=== PATIENT | female | born 1970 | race Caucasian/White ===

== ENCOUNTER 2019-06-10 23:21 | Emergency (ER) | payer OTHER, SELFPAY ==
--- OUTSIDE RECORDS SUMMARY | 2019-06-10 23:23 | XMS REPORT ---
:1970 Author Organization eClinicalWorks Care Team Providers Name Role Phone Artem Sixto Provider Role Unavailable Allergies No Known Allergies Problems Problem Type Condition Code Onset Dates Condition Status Assessment Mixed hyperlipidemia E78.2 Active Problem Circulation problem I99.9 Active Assessment Prediabetes R73.03 Active Problem Body mass index (BMI) of 34.0-34.9 Z68.34 Active in adult Problem Adult BMI 35.0-35.9 kg/sq m Z68.35 Active Problem Other obesity due to excess E66.09 Active calories Problem Mixed hyperlipidemia E78.2 Active Problem Tobacco use disorder F17.200 Active Problem HTN (hypertension), benign I10 Active Problem PAD (peripheral artery disease) I73.9 Active Medications No Known Medications Results No Known Results Summary Purpose eClinicalWorks Submission
--- OUTSIDE RECORDS SUMMARY | 2019-06-10 23:23 | XMS REPORT ---
:1970 Author Organization eClinicalWorks Care Team Providers Name Role Phone Artem Sixto Provider Role Unavailable Allergies, Adverse Reactions, Alerts Substance Reaction Event Type Ramipril rash Drug Allergy Problems Problem Type Condition Code Onset Dates Condition Status Assessment PAD (peripheral artery disease) I73.9 Active Problem Circulation problem I99.9 Active Problem Body mass index (BMI) of 34.0-34.9 Z68.34 Active in adult Problem Adult BMI 35.0-35.9 kg/sq m Z68.35 Active Problem Other obesity due to excess E66.09 Active calories Problem Mixed hyperlipidemia E78.2 Active Problem Tobacco use disorder F17.200 Active Problem HTN (hypertension), benign I10 Active Problem PAD (peripheral artery disease) I73.9 Active Assessment Prediabetes R73.03 Active Assessment HTN (hypertension), benign I10 Active Assessment Body mass index (BMI) of 34.0-34.9 Z68.34 Active in adult Assessment Mixed hyperlipidemia E78.2 Active Assessment Other obesity due to excess E66.09 Active calories Assessment Tobacco use disorder F17.200 Active Medications Medication Code Code Instructions Start End Status Dosage System Date Date Simvastatin ND 01573144052 40 MG Orally Active 1 tablet Once a day Cilostazol ND 55754914629 100 MG Orally Active 1 tablet Twice a day 30 minutes before or 2 hours after breakfast and dinner Aspirin Adult Low ND 31426537073 81 MG Orally Active 1 tablet Dose Once a day Hydrochlorothiazide ND 14947353933 12.5 MG Orally Active 1 tablet Once a day in the morning Results No Known Results Summary Purpose eClinicalWorks Submission
--- OUTSIDE RECORDS SUMMARY | 2019-06-10 23:23 | XMS REPORT ---
:1970 [facility] [address] [place] [address] Care Team Providers Name Role Phone Unavailable Unavailable Unavailable Problems This patient has no known problems. Allergies, Adverse Reactions, Alerts This patient has no known allergies or adverse reactions. Medications This patient has no known medications. Results Test Description Test Time Test Comments Text Results Atomic Results Result Comments SCR MAMM BILATERAL ALVARO 2019-01-04 16:22:07 - SCR MAMM BILATERAL ALVARO CAD CAD DIGITAL DIGITALBILATERAL DIGITAL SCREENING MAMMOGRAM 3D/2D WITH CAD: 01/02/2019CLINICAL: Asymptomatic. Digital breast tomosynthesis was performed in addition to routine CC and MLO views. Current mammographic images were evaluated by either a [employer] M-Vu or a [employer] ImageChecker CAD (computer aided detection system). Comparison is made to exams dated 03/15/2017 mammogram, 03/12/2016 mammogram, and 12/20/2014 mammogram - [facility]. There are scattered fibroglandular tissues in both breasts. No suspicious mass, architectural distortion, malignant type calcification, or lymph node abnormality detected. Breast architecture is stable compared to prior exams.IMPRESSION: NEGATIVEThere is no mammographic evidence of malignancy. Resume annual screening mammography in one year. Maday Doe M.D. cc/penrad:01/04/2019 16:22:07 Entry: cc - 01/06/2019 09:29:34Imaging Technologist: Tika Major MM, [facility] sent: BIRADS 1-2 Normal Mammogram BI-RADS: 1 Negative SCR MAMM BILATERAL ALVARO 2019-01-04 16:22:07 - SCR MAMM BILATERAL ALVARO CAD CAD DIGITAL DIGITALBILATERAL DIGITAL SCREENING MAMMOGRAM 3D/2D WITH CAD: 01/02/2019CLINICAL: Asymptomatic. Digital breast tomosynthesis was performed in addition to routine CC and MLO views. Current mammographic images were evaluated by either a [employer] M-Vu or a [employer] ImageChecker CAD (computer aided detection system). Comparison is made to exams dated 03/15/2017 mammogram, 03/12/2016 mammogram, and 12/20/2014 mammogram - [facility]. There are scattered fibroglandular tissues in both breasts. No suspicious mass, architectural distortion, malignant type calcification, or lymph node abnormality detected. Breast architecture is stable compared to prior exams.IMPRESSION: NEGATIVEThere is no mammographic evidence of malignancy. Resume annual screening mammography in one year. Maday danielson/penrad:01/04/2019 16:22:07 Entry: cc - 01/06/2019 09:29:34Imaging Technologist: Tika Major MM, [facility] sent: BIRADS 1-2 Normal Mammogram BI-RADS: 1 Negative
--- OUTSIDE RECORDS SUMMARY | 2019-06-10 23:24 | XMS REPORT ---
:1970 Author Organization eClinicalWorks Care Team Providers Name Role Phone Isai Mcgillh Provider Role Unavailable Allergies, Adverse Reactions, Alerts Substance Reaction Event Type Ramipril rash Drug Allergy Problems Problem Type Condition Code Onset Dates Condition Status Assessment Well adult on routine health check Z00.00 Active Problem Circulation problem I99.9 Active Problem Body mass index (BMI) of 34.0-34.9 Z68.34 Active in adult Problem Adult BMI 35.0-35.9 kg/sq m Z68.35 Active Problem Other obesity due to excess E66.09 Active calories Problem Mixed hyperlipidemia E78.2 Active Problem Tobacco use disorder F17.200 Active Problem HTN (hypertension), benign I10 Active Problem PAD (peripheral artery disease) I73.9 Active Assessment Noncompliance w/medication Z91.14 Active treatment due to intermit use of medication Assessment Body mass index (BMI) of 34.0-34.9 Z68.34 Active in adult Assessment Statin intolerance Z78.9 Active Assessment HTN (hypertension), benign I10 Active Assessment Mixed hyperlipidemia E78.2 Active Assessment Other obesity due to excess E66.09 Active calories Assessment Tobacco use disorder F17.200 Active Assessment Prediabetes R73.03 Active Assessment PAD (peripheral artery disease) I73.9 Active Medications Medication Code Code Instructions Start End Status Dosage System Date Date Repatha SureClick [facility] 18048340603 140 MG/ML Dec Active 1 ml Subcutaneous 20, every 2 weeks 2018 Aspirin Adult Low [facility] 09183570760 81 MG Orally Active 1 tablet Dose Once a day Cilostazol ND 50566804310 100 MG Orally Active 1 tablet Twice a day 30 minutes before or 2 hours after breakfast and dinner Simvastatin ND 64349333825 40 MG Orally Inactive 1 tablet Once a day Hydrochlorothiazide ND 76012119180 12.5 MG Orally Active 1 tablet Once a day in the morning Hydrochlorothiazide ND 11933292711 12.5 MG Orally Active 1 tablet Once a day in the morning Results No Known Results Summary Purpose eClinicalWorks Submission
--- OUTSIDE RECORDS SUMMARY | 2019-06-10 23:24 | XMS REPORT ---
:1970 Author Organization eClinicalWorks Care Team Providers Name Role Phone Artem Sixto Provider Role Unavailable Allergies No Known Allergies Problems Problem Type Condition Code Onset Dates Condition Status Problem Circulation problem I99.9 Active Problem Body [...]
--- OUTSIDE RECORDS SUMMARY | 2019-06-10 23:24 | XMS REPORT ---
[...] artery disease) I73.9 Active Medications Medication Code System Code Instructions Start End Date Status Dosage Date [facility] 42030326721 140 MG/ML Feb 24, Active 1 ml SureClick Subcutaneous 2018 every 2 weeks Results No Known Results Summary Purpose eClinicalWorks Submission
--- OUTSIDE RECORDS SUMMARY | 2019-06-10 23:24 | XMS REPORT ---
[...] Instructions Start End Date Status Dosage Date [facility] 42403957837 140 MG/ML Feb 24, Active 1 ml SureClick Subcutaneous 2018 every 2 weeks Results No Known Results Summary Purpose eClinicalWorks Submission
--- OUTSIDE RECORDS SUMMARY | 2019-06-10 23:24 | XMS REPORT ---
[...] PAD (peripheral artery disease) I73.9 Active Assessment Statin intolerance Z78.9 Active Assessment Noncompliance w/medication Z91.14 Active treatment due to intermit use of medication Assessment Prediabetes R73.03 Active Assessment HTN (hypertension), benign I10 Active Assessment Body mass index (BMI) of 34.0-34.9 Z68.34 Active in adult Assessment Mixed hyperlipidemia E78.2 Active Assessment Other obesity due to excess E66.09 Active calories Assessment Tobacco use disorder F17.200 Active Medications Medication Code Code Instructions Start End Status Dosage System Date Date Cilostazol [facility] 39980839872 100 MG Orally Active 1 tablet Twice a day 30 minutes before or 2 hours after breakfast and dinner Aspirin Adult Low [facility] 62591349344 81 MG Orally Active 1 tablet Dose Once a day Hydrochlorothiazide ND 84825673251 12.5 MG Orally Active 1 tablet Once a day in the morning Simvastatin ND 83691819596 40 MG Orally Inactive 1 tablet Once a day Results No Known Results Summary Purpose eClinicalWorks Submission
--- OUTSIDE RECORDS SUMMARY | 2019-06-10 23:24 | XMS REPORT ---
[...] Instructions Start End Date Status Dosage Date [facility] 01666381360 140 MG/ML Feb 24, Active 1 ml SureClick Subcutaneous 2018 every 2 weeks Results No Known Results Summary Purpose eClinicalWorks Submission
[2019-06-11 00:16] LABS: Urine Blood NEGATIVE (NEG); Urine Glucose NEGATIVE (NEG); Urine Protein NEGATIVE (NEG); Urine Specific Gravity 1.025 (1.005-1.030); Urine pH 5.5 (5.0-7.0)
[2019-06-11] MEDS ORDERED: CYCLOBENZAPRINE 10 MG TAB ONE (00:39)
[2019-06-11] MEDS ORDERED: KETOROLAC 30 MG/ML INJ ONE (00:39)
[2019-06-11 00:40] LABS: Urine Bacteria >50 /HPF (<20); Urine RBC <5 /HPF (NONE SEEN)
[2019-06-11 00:41] LABS: Urine Culture Reflex Order NOT NEEDED; Urine Mucus 1+ /HPF (NONE SEEN)
--- NOTE | 2019-06-11 00:48 | ER ---
Nurse's Notes [facility] Name: Vi Chinchilla Age: 48 yrs Sex: Female : 1970 Arrival Date: 06/10/2019 Time: 23:25 Bed 7 Private MD: Sixto Mcgill Diagnosis: Low back pain;Urinary tract infection, site not specified Presentation: 06/09 23:29 Chief complaint: Patient states: she has right sided back pain radiating to her abdomen bb x 3 days pain is 10/10 and it feels numb. Coronavirus screen: Proceed with normal triage. Ebola Screen: No symptoms or risks identified at this time. Initial Sepsis Screen: Does the patient meet any 2 criteria? No. Patient's initial sepsis screen is negative. Does the patient have a suspected source of infection? No. Patient's initial sepsis screen is negative. Risk Assessment: Do you want to hurt yourself or someone else? Patient reports no desire to harm self or others. Onset of symptoms was June 07, 2019. 23:29 Method Of Arrival: Ambulatory bb 23:29 Acuity: CATHY 3 bb ORAL HEALTH THERAPIST: 23:32 LMP 05/22/2019 bb Historical: - Allergies: 23:32 No Known Allergies; bb - Home Meds: 23:32 cilostazol 100 mg Oral tab 1 tab 2 times per day [Active]; aspirin 81 mg Oral chew 1 bb tab once daily [Active]; Hydrochlorothiazide Oral [Active]; Repatha Syringe subcutaneous subcutaneous [Active]; - PMHx: 23:32 blood clot in pelvis area; bb - PSHx: 23:32 Tubal ligation; bb - Immunization history:: Adult Immunizations up to date. - Social history:: Smoking status: Patient reports the use of cigarette tobacco products, smokes one-half pack cigarettes per day, Patient uses alcohol, but reports only rare drinking. Patient/guardian denies using street drugs. Screenin:53 Abuse screen: Denies threats or abuse. Denies injuries from another. Nutritional lp1 screening: No deficits noted. Tuberculosis screening: No symptoms or risk factors identified. Fall Risk None identified. Assessment: 23:51 General: Appears in no apparent distress. Behavior is calm, cooperative, appropriate lp1 for age. Pain: Complains of pain in right low back Pain radiates to right lower quadrant Pain currently is 7 out of 10 on a pain scale. Quality of pain is described as. Neuro: Level of Consciousness is awake, alert, obeys commands, Oriented to person, place, time, situation, Moves all extremities. Full function Gait is steady, Reports paresthesias in right low back. Cardiovascular: Patient's skin is warm and dry. Respiratory: Respiratory effort is even, unlabored. GI: No signs and/or symptoms were reported involving the gastrointestinal system. : Denies pain with urination. EENT: No signs and/or symptoms were reported regarding the EENT system. Derm: Skin is pink, warm \T\ dry. Musculoskeletal: No deficits noted. Vital Signs: 23:29 BP 178 / 97; Pulse 68; Resp 16 S; Temp 97.9(O); Pulse Ox 99% on R/A; Weight 86.64 kg bb (R); Height 5 ft. 0 in. (152.40 cm) (R); Pain 10/10; 23:29 Body Mass Index 37.30 (86.64 kg, 152.40 cm) bb ED Course: 23:25 Patient arrived in ED. mr 23:25 Sixto Mcgill DO is Private Physician. mr 23:30 Triage completed. bb 23:32 Arm band placed on Patient placed in an exam room, on a stretcher, on pulse oximetry. bb 23:40 Cassi Olmedo, LOBITO is Primary Nurse. lp1 23:54 Iona Simmons FNP-C is PHCP. snw 23:54 Adolph Zepeda MD is Attending Physician. snw 04/05 00:00 Urine Microscopic Only Sent. ds4 00:00 Urine Culture Sent. ds4 00:48 Sixto Mcgill DO is Referral Physician. snw 00:58 No provider procedures requiring assistance completed. Patient did not have IV access lp1 during this emergency room visit. 00:59 Patient has correct armband on for positive identification. lp1 Administered Medications: 00:38 Drug: TORadol 30 mg Route: IM; Site: left gluteus; fc 00:58 Follow up: Response: No adverse reaction lp1 00:38 Drug: Flexeril 10 mg Route: PO; fc 00:58 Follow up: Response: No adverse reaction lp1 00:58 Drug: Doxycycline 100 mg Route: PO; lp1 00:58 Follow up: Response: Medication administered at discharge. lp1 Outcome: 00:48 Discharge ordered by . snw 00:59 Discharged to home ambulatory, with friend. lp1 00:59 Condition: good 00:59 Discharge instructions given to patient, Instructed on discharge instructions, follow up and referral plans. medication usage, Demonstrated understanding of instructions, follow-up care, medications, Prescriptions given X 3. 00:59 Patient left the ED. lp1 Signatures: Iona Simmons, COMBINATION OPERATOR-C COMBINATION OPERATOR-Csnw Mary Klineindigovadim, Vidya, RN RN fc Leticia Villatoro, RN RN bb Cassi Olmedo RN RN lp1 Pedro Luis Aguayo4
--- NOTE | 2019-06-11 00:49 | EDPHYS ---
Physician Documentation [facility] Name: Vi Chinchilla Age: 48 yrs Sex: Female : 1970 Arrival Date: 06/10/2019 Time: 23:25 Bed 7 Private MD: Artem [facility] ED Physician Adolph Zepeda HPI: 06/10 00:51 This 48 yrs old Female presents to ER via Ambulatory with complaints of Back snw Pain. 00:51 The patient presents with pain that is acute, with no known mechanism of injury. The snw symptoms are located in the low back. Onset: The symptoms/episode began/occurred gradually, 3 day(s) ago. The pain does not radiate. Associated signs and symptoms: The patient has no apparent associated signs or symptoms. The problem was sustained from unknown cause. Severity of symptoms: At their worst the symptoms were moderate. It is unknown whether or not the patient has had similar symptoms in the past. The patient has not recently seen a physician. SOCIAL MEDIA MARKETING MANAGER: 06/09 23:32 LMP 05/22/2019 bb Historical: - Allergies: 23:32 No Known Allergies; bb - Home Meds: 23:32 cilostazol 100 mg Oral tab 1 tab 2 times per day [Active]; aspirin 81 mg Oral chew 1 bb tab once daily [Active]; Hydrochlorothiazide Oral [Active]; Repatha Syringe subcutaneous subcutaneous [Active]; - PMHx: 23:32 blood clot in pelvis area; bb - PSHx: 23:32 Tubal ligation; bb - Immunization history:: Adult Immunizations up to date. - Social history:: Smoking status: Patient reports the use of cigarette tobacco products, smokes one-half pack cigarettes per day, Patient uses alcohol, but reports only rare drinking. Patient/guardian denies using street drugs. ROS: 06/10 00:51 Constitutional: Negative for fever, chills, and weight loss, Eyes: Negative for injury, snw pain, redness, and discharge, ENT: Negative for injury, pain, and discharge, Neck: Negative for injury, pain, and swelling, Cardiovascular: Negative for chest pain, palpitations, and edema, Respiratory: Negative for shortness of breath, cough, wheezing, and pleuritic chest pain, Abdomen/GI: Negative for abdominal pain, nausea, vomiting, diarrhea, and constipation, : Negative for injury, bleeding, discharge, and swelling, MS/Extremity: Negative for injury and deformity, Skin: Negative for injury, rash, and discoloration, Neuro: Negative for headache, weakness, numbness, tingling, and seizure. Back: Positive for pain at rest, pain with movement, of the right low back. Exam: 00:50 Constitutional: This is a well developed, well nourished patient who is awake, alert, snw and in no acute distress. Head/Face: Normocephalic, atraumatic. Eyes: Pupils equal round and reactive to light, extra-ocular motions intact. Lids and lashes normal. Conjunctiva and sclera are non-icteric and not injected. Cornea within normal limits. Periorbital areas with no swelling, redness, or edema. ENT: Nares patent. No nasal discharge, no septal abnormalities noted. Tympanic membranes are normal and external auditory canals are clear. Oropharynx with no redness, swelling, or masses, exudates, or evidence of obstruction, uvula midline. Mucous membranes moist. Neck: Trachea midline, no thyromegaly or masses palpated, and no cervical lymphadenopathy. Supple, full range of motion without nuchal rigidity, or vertebral point tenderness. No Meningismus. Chest/axilla: Normal chest wall appearance and motion. Nontender with no deformity. No lesions are appreciated. Cardiovascular: Regular rate and rhythm with a normal S1 and S2. No gallops, murmurs, or rubs. Normal PMI, no JVD. No pulse deficits. Respiratory: Lungs have equal breath sounds bilaterally, clear to auscultation and percussion. No rales, rhonchi or wheezes noted. No increased work of breathing, no retractions or nasal flaring. Abdomen/GI: Soft, non-tender, with normal bowel sounds. No distension or tympany. No guarding or rebound. No evidence of tenderness throughout. Skin: Warm, dry with normal turgor. Normal color with no rashes, no lesions, and no evidence of cellulitis. MS/ Extremity: Pulses equal, no cyanosis. Neurovascular intact. Full, normal range of motion. Neuro: Awake and alert, GCS 15, oriented to person, place, time, and situation. Cranial nerves II-XII grossly intact. Motor strength 5/5 in all extremities. Sensory grossly intact. Cerebellar exam normal. Normal gait. Psych: Awake, alert, with orientation to person, place and time. Behavior, mood, and affect are within normal limits. 00:50 Back: pain, that is mild, that is moderate, ROM is normal, CVA tenderness, is absent, muscle spasm, is appreciated in the low back area. Vital Signs: 06/09 23:29 BP 178 / 97; Pulse 68; Resp 16 S; Temp 97.9(O); Pulse Ox 99% on R/A; Weight 86.64 kg bb (R); Height 5 ft. 0 in. (152.40 cm) (R); Pain 10/10; 23:29 Body Mass Index 37.30 (86.64 kg, 152.40 cm) bb MDM: 06/10 00:02 Patient medically screened. snw 00:49 Data reviewed: vital signs, nurses notes. Counseling: I had a detailed discussion with snw the patient and/or guardian regarding: the historical points, exam findings, and any diagnostic results supporting the discharge/admit diagnosis, the presence of at least one elevated blood pressure reading (>120/80) during this emergency department visit, lab results, the need for outpatient follow up, to return to the emergency department if symptoms worsen or persist or if there are any questions or concerns that arise at home. Special discussion: I have referred the patient to see his PCP for further evaluation of high blood pressure. Based on the history and exam findings, there is no indication for further emergent testing or inpatient evaluation. I discussed with the patient/guardian the need to see the primary care provider for further evaluation of the symptoms. 06/09 23:56 Order name: Urine Microscopic Only; Complete Time: 00:48 snw 06/09 23:59 Order name: Urine Dipstick--Ancillary (enter results); Complete Time: 00:21 ds4 06/09 23:56 Order name: Urine Dipstick-Ancillary (obtain specimen); Complete Time: 23:58 snw Administered Medications: 00:38 Drug: TORadol 30 mg Route: IM; Site: left gluteus; 00:58 Follow up: Response: No adverse reaction lp1 00:38 Drug: Flexeril 10 mg Route: PO; fc 00:58 Follow up: Response: No adverse reaction lp1 00:58 Drug: Doxycycline 100 mg Route: PO; lp1 00:58 Follow up: Response: Medication administered at discharge. lp1 Disposition: 06:59 Co-signature as Attending Physician, Adolph Zepeda MD I agree with the assessment and tw4 plan of care. Disposition: 06/11/19 00:48 Discharged to Home. Impression: Low back pain, Urinary tract infection, site not specified. - Condition is Stable. - Discharge Instructions: Back Pain, Adult, Urinary Tract Infection, Adult, Cryotherapy, Rehydration, Adult, Heat Therapy. - Prescriptions for Doxycycline Hyclate 100 mg Oral Tablet - take 1 tablet by ORAL route every 12 hours; 20 tablet. orphenadrine citrate 100 mg Oral Tablet Sustained Release - take 1 tablet by ORAL route 2 times per day As needed; 20 tablet. promethazine 25 mg Oral Tablet - take 1 tablet by ORAL route every 6 hours As needed; 20 tablet. - Work release form, Medication Reconciliation Form, Thank You Letter, Antibiotic Education, Prescription Opioid Use form. - Follow up: Emergency Department; When: As needed; Reason: Worsening of condition. Follow up: Sixto Mcgill DO; When: 2 - 3 days; Reason: Recheck today's complaints, Continuance of care, Re-evaluation by your physician. Signatures: Dispatcher [employer] EDMS Iona Simmons, GARRETT ERP CONSULTANT-CsnVidya Evans, RN RN Leticia Villatoro RN RN Cassi Marvin, RN RN lp1 Adolph Zepeda MD MD tw4 Corrections: (The following items were deleted from the chart) 00:59 00:48 06/11/2019 00:48 Discharged to Home. Impression: Low back pain; Urinary tract lp1 infection, site not specified. Condition is Stable. Forms are Medication Reconciliation Form, Thank You Letter, Antibiotic Education, Prescription Opioid Use. Follow up: Emergency Department; When: As needed; Reason: Worsening of condition. Follow up: Sixto Mcgill; When: 2 - 3 days; Reason: Recheck today's complaints, Continuance of care, Re-evaluation by your physician. snw
[2019-06-11] MEDS ORDERED: DOXYCYCLINE 100 MG CAP PO ONE (00:57)
== END 2019-06-11 00:59 | disposition home or self-care (01) ==
LOC: ER 23:21
DX: N39.0 Urinary tract infection, site not specified (principal); M54.5 Low back pain; F17.210 Nicotine dependence, cigarettes, uncomplicated
CPT/HCPCS: 81003; 81015; 96372; 99284

== ENCOUNTER 2019-06-12 19:40 | Emergency (ER) | payer OTHER ==
--- OUTSIDE RECORDS SUMMARY | 2019-06-12 19:42 | XMS REPORT ---
:1970 Author Organization [facility] Address [address] [place] [address] Care Team Providers Name Role Phone Unavailable [...] mammographic images were evaluated by either a [employer] 2000 M-Vu or a [employer] ImageChecker CAD (computer aided detection system). Comparison is made to exams dated 03/15/2017 mammogram, 03/12/2016 mammogram, and 12/20/2014 mammogram - [facility]. There are scattered fibroglandular tissues in both breasts. No suspicious mass, architectural distortion, malignant type calcification, or lymph node abnormality detected. Breast architecture is stable compared to prior exams.IMPRESSION: NEGATIVEThere is no mammographic evidence of malignancy. Resume annual screening mammography in one year. Maday Doe M.D. cc/penrad:01/04/2019 16:22:07 Entry: cc - 01/06/2019 09:29:34Imaging Technologist: Tika Major MM, [facility] sent: BIRADS 1-2 Normal Mammogram BI-RADS: 1 Negative SCR MAMM BILATERAL ALVARO 2019-01-04 16:22:07 - SCR MAMM BILATERAL ALVARO CAD CAD DIGITAL DIGITALBILATERAL DIGITAL SCREENING MAMMOGRAM 3D/2D WITH CAD: 01/02/2019CLINICAL: Asymptomatic. Digital breast tomosynthesis was performed in addition to routine CC and MLO views. Current mammographic images were evaluated by either a [employer] 2000 M-Vu or a [employer] ImageChecker CAD (computer aided detection system). Comparison is made to exams dated 03/15/2017 mammogram, 03/12/2016 mammogram, and 12/20/2014 mammogram - [facility]. There are scattered fibroglandular tissues in both breasts. No suspicious mass, architectural distortion, malignant type calcification, or lymph node abnormality detected. Breast architecture is stable compared to prior exams.IMPRESSION: NEGATIVEThere is no mammographic evidence of malignancy. Resume annual screening mammography in one year. Maday danielson/penrad:01/04/2019 16:22:07 Entry: cc - 01/06/2019 09:29:34Imaging Technologist: Tika Major MM, [facility] sent: BIRADS 1-2 Normal Mammogram BI-RADS: 1 Negative
--- OUTSIDE RECORDS SUMMARY | 2019-06-12 19:42 | XMS REPORT ---
[...] Instructions Start End Date Status Dosage Date [facility] [id number] 140 MG/ML Feb 24, Active 1 ml SureClick Subcutaneous 2018 every 2 weeks Results No Known Results Summary Purpose eClinicalWorks Submission
--- OUTSIDE RECORDS SUMMARY | 2019-06-12 19:42 | XMS REPORT ---
[...] End Status Dosage System Date Date Cilostazol [facility] 18585519422 100 MG Orally Active 1 tablet Twice a day 30 minutes before or 2 hours after breakfast and dinner Aspirin Adult Low [facility] 75487697813 81 MG Orally Active 1 tablet Dose Once a day Hydrochlorothiazide ND 57758708775 12.5 MG Orally Active 1 tablet Once a day in the morning Simvastatin ND 15421013831 40 MG Orally Inactive 1 tablet Once a day Results No Known Results Summary Purpose eClinicalWorks Submission
--- OUTSIDE RECORDS SUMMARY | 2019-06-12 19:42 | XMS REPORT ---
[...] Instructions Start End Date Status Dosage Date [facility] [id number] 140 MG/ML Feb 24, Active 1 ml SureClick Subcutaneous 2018 every 2 weeks Results No Known Results Summary Purpose eClinicalWorks Submission
--- OUTSIDE RECORDS SUMMARY | 2019-06-12 19:42 | XMS REPORT ---
[...] Instructions Start End Date Status Dosage Date [facility] [id number] 140 MG/ML Feb 24, Active 1 ml SureClick Subcutaneous 2018 every 2 weeks Results No Known Results Summary Purpose eClinicalWorks Submission
--- OUTSIDE RECORDS SUMMARY | 2019-06-12 19:42 | XMS REPORT ---
[...] Status Dosage System Date Date Simvastatin ND 11940902566 40 MG Orally Active 1 tablet Once a day Cilostazol ND 73583583033 100 MG Orally Active 1 tablet Twice a day 30 minutes before or 2 hours after breakfast and dinner Aspirin Adult Low ND 97170656000 81 MG Orally Active 1 tablet Dose Once a day Hydrochlorothiazide ND 89391445265 12.5 MG Orally Active 1 tablet Once a day in the morning Results No Known Results Summary Purpose eClinicalWorks Submission
--- OUTSIDE RECORDS SUMMARY | 2019-06-12 19:43 | XMS REPORT ---
[...] Status Dosage System Date Date Repatha SureClick [facility] 82073500041 140 MG/ML Dec Active 1 ml Subcutaneous 20, every 2 weeks 2018 Aspirin Adult Low [facility] 89437992083 81 MG Orally Active 1 tablet Dose Once a day Cilostazol ND 46522794218 100 MG Orally Active 1 tablet Twice a day 30 minutes before or 2 hours after breakfast and dinner Simvastatin ND 10729887242 40 MG Orally Inactive 1 tablet Once a day Hydrochlorothiazide ND 01416154687 12.5 MG Orally Active 1 tablet Once a day in the morning Hydrochlorothiazide ND 68276595696 12.5 MG Orally Active 1 tablet Once a day in the morning Results No Known Results Summary Purpose eClinicalWorks Submission
[2019-06-12 20:37] LABS: Urine Blood NEGATIVE (NEG); Urine Glucose TRACE (NEG); Urine Protein 2+ (NEG); Urine Specific Gravity 1.015 (1.005-1.030)
[2019-06-12 20:42] LABS: Absolute Lymphocytes (CBC) 1.9 K/uL (0.7-4.9); Basophils % 0.7 % (0-1.3); Hematocrit 44.8 % (36.0-45.0); Lymphocytes % 27.1 % (15.3-44.8); MPV 9.3 fL (7.6-11.3); RBC Red Blood Cell Count 5.16 M/uL (3.86-4.86)
--- NOTE | 2019-06-12 20:49 | RAD REPORT ---
EXAM DESCRIPTION: CT - Stone Protocol - 06/12/2019 8:41 pm CLINICAL HISTORY: FLANK PAIN, right-side COMPARISON: No comparisons TECHNIQUE: Axial 5 mm thick images were obtained without oral or IV contrast. The [id number] span s the entirety of the system including uppermost abdomen and lung bases. All CT scans are performed using dose optimization technique as appropriate and may include automated exposure control or mA/KV adjustment according to patient size. FINDINGS: No hydronephrosis is present and no obstructing ureteral calculi. No suspicious renal mass es. Isodense masses and pyelonephritis are not excluded on a stone protocol CT scan. No significant a drenal finding. No urinary bladder suspicious finding. Multiple phleboliths are seen in the pelvis, n one of which are suspected to be ureteral calculi. Imaged portions of the liver, spleen and pancreas show no suspicious findings on non-contrast imaging . No gallbladder or biliary tree abnormality identified. No suspicious bowel findings. Appendix is normal. No active GI process seen. Uterus and ovaries show no suspicious findings. No hernia, mass or bulky lymphadenopathy noted. No free air, free fluid or inflammatory stranding. Disc degenerative changes are present at L3-4 and L5-S1. Advanced facet joint degenerative change at L4-5 and L5-S1 with slight L4 anterior subluxation. IMPRESSION: No hydronephrosis, obstructing calculus or acute finding. Isodense masses and pyelonephritis are not excluded on stone protocol technique. Remainder the study also without evidence for an acute process. 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
[2019-06-12] MEDS ORDERED: NA CHLORIDE 0.9% 1,000 ML ONE (20:50)
[2019-06-12] MEDS ORDERED: KETOROLAC 30 MG/ML INJ ONE (20:50)
[2019-06-12] MEDS ORDERED: ONDANSETRON 4 MG/2 ML VIAL ONE (20:50)
[2019-06-12 20:54] LABS: Albumin 3.8 g/dL (3.4-5.0); Bilirubin Direct 0.1 mg/dL (0-0.2); Bilirubin Total 0.4 mg/dL (0.2-1.0); Potassium 3.2 mmol/L (3.5-5.1); Protein, Total 7.5 g/dL (6.4-8.2)
[2019-06-12 22:03] LABS: Urine Amorphous Sediment 1+ /HPF (NONE SEEN); Urine Bacteria >50 /HPF (<20); Urine Culture Reflex Order REFLEXED; Urine Mucus 4+ /HPF (NONE SEEN)
[2019-06-12] MEDS ORDERED: TRAMADOL HCL 50 MG TAB ONE (22:41)
--- NOTE | 2019-06-12 22:47 | ER ---
Nurse's Notes [facility] Name: Vi Chinchilla Age: 48 yrs Sex: Female : 1970 Arrival Date: 06/12/2019 Time: 19:42 Bed 19 Private MD: Diagnosis: Urinary tract infection, site not specified;Low back pain Presentation: 06/11 19:48 Chief complaint: Patient states: Right flank pain has gotten worse since she was seen ll1 here Wednesday. Diagnosed with UTI, taking antibiotics as prescribed. Coronavirus screen: Proceed with normal triage. Patient denies a cough. Patient denies shortness of breath or difficulty breathing. Patient denies measured and/or subjective temperature greater than 100.4F prior to today's visit. Patient denies travel on a cruise ship or to a country the [facility] currently lists as an affected area. Patient denies contact with known and/or suspected case of COVID-19. Ebola Screen: Patient denies travel to an Ebola-affected area in the 21 days before illness onset. Initial Sepsis Screen: Does the patient meet any 2 criteria? No. Patient's initial sepsis screen is negative. Risk Assessment: Do you want to hurt yourself or someone else? Patient reports no desire to harm self or others. 19:48 Method Of Arrival: Ambulatory ll1 19:48 Acuity: CATHY 3 ll1 Historical: - Allergies: 19:51 No Known Allergies; ll1 - PMHx: 19:51 blood clot in pelvis area; ll1 - PSHx: 19:51 Tubal ligation; ll1 - Social history:: Smoking status: Patient reports the use of cigarette tobacco products, smokes one-half pack cigarettes per day, Patient uses alcohol, only on a social basis. Patient/guardian denies using street drugs. Screenin:45 Abuse screen: Denies threats or abuse. Nutritional screening: No deficits noted. jb4 Tuberculosis screening: No symptoms or risk factors identified. Fall Risk None identified. Assessment: 19:45 General: Appears in no apparent distress. uncomfortable, Behavior is calm, cooperative, jb4 appropriate for age. Pain: Complains of pain in right low back Pain radiates to right lower quadrant Pain currently is 10 out of 10 on a pain scale. Quality of pain is described as numbing Pain began 4 days ago Is continuous, Alleviated by nothing. Aggravated by none. Neuro: Level of Consciousness is awake, alert, obeys commands, Oriented to person, place, time, situation, Dry Goods Inspector are equal bilaterally Moves all extremities. Full function Gait is steady, Speech is normal, Facial symmetry appears normal, Pupils are PERRLA. Cardiovascular: Patient's skin is warm and dry. Respiratory: Airway is patent Respiratory effort is even, unlabored, Respiratory pattern is regular, symmetrical. GI: No signs and/or symptoms were reported involving the gastrointestinal system. : PT's urine is red in color due to taking Azo. Reports right flank pain,a foul odor, and urinating less than normal. EENT: No signs and/or symptoms were reported regarding the EENT system. Derm: Skin is intact, Skin is pink, warm \T\ dry. Musculoskeletal: Circulation, motion, and sensation intact. Range of motion: intact in all extremities. 20:45 Reassessment: Patient appears in no apparent distress at this time. Patient and/or jb4 family updated on plan of care and expected duration. Pain level reassessed. Patient is alert, oriented x 3, equal unlabored respirations, skin warm/dry/pink. PT back from CT. 21:10 Reassessment: PT reports pain has decreased to 9/10. jb4 21:22 Reassessment: PT reports pain is no 8/10 denies any other pain medication. jb4 22:10 Reassessment: Patient appears in no apparent distress at this time. Patient and/or jb4 family updated on plan of care and expected duration. Pain level reassessed. Patient is alert, oriented x 3, equal unlabored respirations, skin warm/dry/pink. Pt reports pain has increased to 10/10, and blood pressure increased to 194/90, provider notified, see MAR for orders.. 23:13 Reassessment: Patient appears in no apparent distress at this time. Patient and/or jb4 family updated on plan of care and expected duration. Pain level reassessed. Patient is alert, oriented x 3, equal unlabored respirations, skin warm/dry/pink. Pt reports feeling better and that pain has decreased. Pt verbalized understanding of d/c and follow up instructions. Ambulated out of ED with steady gait. Vital Signs: 19:48 BP 204 / 113; Pulse 79; Resp 18; Temp 99.0; Pulse Ox 97% ; Weight 86.64 kg; Height 5 ll1 ft. 0 in. (152.40 cm); Pain 10/10; 20:10 BP 186 / 87; Pulse 76; Resp 16; Pulse Ox 94% on R/A; jb4 20:45 BP 166 / 59; Pulse 74; Resp 16; Pulse Ox 97% on R/A; jb4 22:00 BP 194 / 90; Pulse 79; Resp 16; Pulse Ox 95% on R/A; Pain 10/10; jb4 22:30 BP 177 / 100; Pulse 76; Resp 18; Temp 98.2(O); Pulse Ox 95% on R/A; jb4 19:48 Body Mass Index 37.30 (86.64 kg, 152.40 cm) ll1 ED Course: 19:42 Patient arrived in ED. cl3 19:45 Eber Syed, RN is Primary Nurse. jb4 19:45 Patient has correct armband on for positive identification. Placed in gown. Bed in low jb4 position. Call light in reach. Side rails up X 1. Pulse ox on. NIBP on. 19:50 Triage completed. ll1 19:51 Arm band placed on Patient placed in an exam room, on a stretcher. ll1 19:54 Adolph Zepeda MD is Attending Physician. tw4 20:34 Inserted saline lock: 20 gauge in right antecubital area, using aseptic technique. dh4 20:35 Basic Metabolic Panel Sent. jb4 20:35 CBC with Diff Sent. jb4 20:35 Creatinine for Radiology Sent. jb4 20:35 Hepatic Function Sent. jb4 20:35 Lipase Sent. jb4 20:41 CT Stone Protocol In Process Unspecified. EDMS 23:15 No provider procedures requiring assistance completed. IV discontinued, intact, jb4 bleeding controlled, No redness/swelling at site. Pressure dressing applied. Administered Medications: 20:48 Drug: NS 0.9% 1000 ml Route: IV; Rate: 1 bolus; Site: right antecubital; jb4 21:30 Follow up: Response: No adverse reaction; IV Status: Completed infusion; IV Intake: jb4 1000ml 20:49 Drug: TORadol 30 mg Route: IVP; Site: right antecubital; jb4 21:10 Follow up: Response: No adverse reaction; Pain is decreased jb4 20:50 Drug: Zofran (Ondansetron) 4 mg Route: IVP; Site: right antecubital; jb4 21:10 Follow up: Response: No adverse reaction; Nausea is decreased jb4 22:38 Drug: traMADol 50 mg {Note: Rass score 0.} Route: PO; jb4 23:10 Follow up: Response: No adverse reaction; Pain is decreased; RASS: Alert and Calm (0) jb4 Intake: 21:30 IV: 1000ml; Total: 1000ml. jb4 Outcome: 22:46 Discharge ordered by . tw4 23:12 Patient left the ED. jb4 23:15 Discharged to home ambulatory. jb4 23:15 Condition: stable 23:15 Discharge instructions given to patient, Instructed on discharge instructions, follow up and referral plans. medication usage, Demonstrated understanding of instructions, follow-up care, medications, Prescriptions given X 3. Signatures: Dispatcher [employer] EDEber Cha RN RN jb4 Adolph Zepeda MD MD 4 Samuel Tompkins 3 Pieter Avila 4 Hawa Tompkins RN RN ll1 Corrections: (The following items were deleted from the chart) 22:25 22:10 Reassessment: Patient appears in no apparent distress at this time. Patient jb4 and/or family updated on plan of care and expected duration. Pain level reassessed. Patient is alert, oriented x 3, equal unlabored respirations, skin warm/dry/pink. Pt reports pain has increased to 10/10, and blood pressure increased to 190/64, provider notified. jb4 22:40 22:10 Reassessment: Patient appears in no apparent distress at this time. Patient jb4 and/or family updated on plan of care and expected duration. Pain level reassessed. Patient is alert, oriented x 3, equal unlabored respirations, skin warm/dry/pink. Pt reports pain has increased to 10/10, and blood pressure increased to 194/90, provider notified. jb4
--- NOTE | 2019-06-12 22:47 | EDPHYS ---
Physician Documentation [facility] Name: Vi Chinchilla Age: 48 yrs Sex: Female : 1970 Arrival Date: 06/12/2019 Time: 19:42 Bed 19 Private MD: ED Physician Adolph Zepeda HPI: 06/11 22:36 This 48 yrs old Female presents to ER via Ambulatory with complaints of Back tw4 Pain. 22:36 The patient presents with pain and tenderness. The pain does not radiate. Associated tw4 signs and symptoms: The patient has no apparent associated signs or symptoms. Modifying factors: The patient symptoms are alleviated by nothing, the patient symptoms are aggravated by. Severity of symptoms: At their worst the symptoms were moderate, in the emergency department the symptoms are unchanged. 22:39 Onset: The symptoms/episode began/occurred 3 day(s) ago. tw4 Historical: - Allergies: 19:51 No Known Allergies; ll1 - PMHx: 19:51 blood clot in pelvis area; ll1 - PSHx: 19:51 Tubal ligation; ll1 - Social history:: Smoking status: Patient reports the use of cigarette tobacco products, smokes one-half pack cigarettes per day, Patient uses alcohol, only on a social basis. Patient/guardian denies using street drugs. ROS: 22:36 Constitutional: Negative for fever, chills, and weight loss, Eyes: Negative for injury, tw4 pain, redness, and discharge, Cardiovascular: Negative for chest pain, palpitations, and edema, Respiratory: Negative for shortness of breath, cough, wheezing, and pleuritic chest pain, Abdomen/GI: Negative for abdominal pain, nausea, vomiting, diarrhea, and constipation, MS/Extremity: Negative for injury and deformity, Skin: Negative for injury, rash, and discoloration, Neuro: Negative for headache, weakness, numbness, tingling, and seizure. 22:36 Back: Positive for pain at rest, pain with movement. Exam: 22:39 Constitutional: This is a well developed, well nourished patient who is awake, alert, tw4 and in no acute distress. Head/Face: Normocephalic, atraumatic. Chest/axilla: Normal chest wall appearance and motion. Nontender with no deformity. No lesions are appreciated. Cardiovascular: Regular rate and rhythm with a normal S1 and S2. No gallops, murmurs, or rubs. Normal PMI, no JVD. No pulse deficits. Respiratory: Lungs have equal breath sounds bilaterally, clear to auscultation and percussion. No rales, rhonchi or wheezes noted. No increased work of breathing, no retractions or nasal flaring. Abdomen/GI: Soft, non-tender, with normal bowel sounds. No distension or tympany. No guarding or rebound. No evidence of tenderness throughout. Back: No spinal tenderness. No costovertebral tenderness. Full range of motion. MS/ Extremity: Pulses equal, no cyanosis. Neurovascular intact. Full, normal range of motion. Neuro: Awake and alert, GCS 15, oriented to person, place, time, and situation. Cranial nerves II-XII grossly intact. Motor strength 5/5 in all extremities. Sensory grossly intact. Cerebellar exam normal. Normal gait. Vital Signs: 19:48 BP 204 / 113; Pulse 79; Resp 18; Temp 99.0; Pulse Ox 97% ; Weight 86.64 kg; Height 5 ll1 ft. 0 in. (152.40 cm); Pain 10/10; 20:10 BP 186 / 87; Pulse 76; Resp 16; Pulse Ox 94% on R/A; jb4 20:45 BP 166 / 59; Pulse 74; Resp 16; Pulse Ox 97% on R/A; jb4 22:00 BP 194 / 90; Pulse 79; Resp 16; Pulse Ox 95% on R/A; Pain 10/10; jb4 22:30 BP 177 / 100; Pulse 76; Resp 18; Temp 98.2(O); Pulse Ox 95% on R/A; jb4 19:48 Body Mass Index 37.30 (86.64 kg, 152.40 cm) ll1 MDM: 19:54 Patient medically screened. tw4 22:39 Differential diagnosis: Perforated Ulcer Pyelonephritis sprain, Ureterolithiasis. Data tw4 reviewed: vital signs, nurses notes. Data reviewed: lab test result(s), CBC, electrolytes. Data interpreted: Pulse oximetry: Interpretation: normal. Counseling: I had a detailed discussion with the patient and/or guardian regarding: the historical points, exam findings, and any diagnostic results supporting the discharge/admit diagnosis, lab results, radiology results. Medication response: Response to treatment: the patient's symptoms have mildly improved after treatment, and as a result, I will discharge patient. Special discussion: I discussed with the patient/guardian in detail that at this point there is no indication for admission to the hospital. It is understood, however, that if the symptoms persist or worsen the patient needs to return immediately for re-evaluation. 06/11 20:08 Order name: Urine Dipstick--Ancillary (enter results); Complete Time: 20:54 [facility] 06/11 20:08 Order name: Urine --Ancillary (enter results); Complete Time: 20:54 [facility] 06/11 20:17 Order name: Basic Metabolic Panel; Complete Time: 21:52 [facility] 06/11 21:52 Interpretation: Normal except: K 3.2; GFR 81. 06/11 20:17 Order name: CBC with Diff; Complete Time: 21:52 [facility] 06/11 21:52 Interpretation: Normal except: RBC 5.16; RDW 15.4. [facility] 06/11 20:17 Order name: Creatinine for Radiology; Complete Time: 21:52 [facility] 06/11 21:53 Interpretation: CRE 0.77; GFR 80. [facility] 06/11 20:17 Order name: Hepatic Function; Complete Time: 21:52 [facility] 06/11 21:52 Interpretation: Normal except: GLOB 3.7; A/G 1.0. [facility] 06/11 20:17 Order name: Lipase; Complete Time: 21:52 [facility] 06/11 20:17 Order name: CT Stone Protocol; Complete Time: 20:53 [facility] 06/11 20:54 Order name: Urine Microscopic Only; Complete Time: 22:12 [facility] 06/11 22:24 Interpretation: Normal except: MUCUS 4+; SQEPI 5-10; UBACT >50; URBC 5-10; UWBC 10-20. [facility] 06/11 22:05 Order name: Urine Culture [facility] 06/11 20:17 Order name: IV Saline Lock; Complete Time: 20:35 [facility] 06/11 20:17 Order name: Labs collected and sent; Complete Time: 20:35 tw4 Administered Medications: 20:48 Drug: NS 0.9% 1000 ml Route: IV; Rate: 1 bolus; Site: right antecubital; jb4 21:30 Follow up: Response: No adverse reaction; IV Status: Completed infusion; IV Intake: jb4 1000ml 20:49 Drug: TORadol 30 mg Route: IVP; Site: right antecubital; jb4 21:10 Follow up: Response: No adverse reaction; Pain is decreased jb4 20:50 Drug: Zofran (Ondansetron) 4 mg Route: IVP; Site: right antecubital; jb4 21:10 Follow up: Response: No adverse reaction; Nausea is decreased jb4 22:38 Drug: traMADol 50 mg {Note: Rass score 0.} Route: PO; jb4 23:10 Follow up: Response: No adverse reaction; Pain is decreased; RASS: Alert and Calm (0) 4 Disposition: 06/12/19 22:46 Discharged to Home. Impression: Urinary tract infection, site not specified, Low back pain. - Condition is Stable. - Discharge Instructions: Back Pain, Adult, Urinary Tract Infection, Adult. - Prescriptions for Ibuprofen 800 mg Oral Tablet - take 1 tablet by ORAL route every 8 hours As needed take with food; 30 tablet. Macrobid 100 mg Oral Capsule - take 1 capsule by ORAL route every 12 hours for 10 days; 20 capsule. Tramadol 50 mg Oral Tablet - take 1 tablet by ORAL route every 8 hours as needed; 12 tablet. - Medication Reconciliation Form, Thank You Letter, Antibiotic Education, Prescription Opioid Use form. - Follow up: Private Physician; When: Upon discharge from the Emergency Department; Reason: Recheck today's complaints, Continuance of care, Re-evaluation by your physician. - Problem is new. - Symptoms have improved. Signatures: Dispatcher [employer] EDHI Eber Syed RN RN jb4 Adolph Zepeda MD MD tw4 Hawa Tompkins RN RN ll1 Corrections: (The following items were deleted from the chart) 22:39 22:36 Onset: The symptoms/episode began/occurred today, 4 tw4 23:12 22:46 06/12/2019 22:46 Discharged to Home. Impression: Urinary tract infection, site jb4 not specified; Low back pain. Condition is Stable. Forms are Medication Reconciliation Form, Thank You Letter, Antibiotic Education, Prescription Opioid Use. Follow up: Private Physician; When: Upon discharge from the Emergency Department; Reason: Recheck today's complaints, Continuance of care, Re-evaluation by your physician. Problem is new. Symptoms have improved. tw4
[2019-06-12 23:23] VITALS: O2SAT 95
[2019-06-12 23:24] VITALS: BP 177/100; TEMP 98.2
== END 2019-06-12 23:12 | disposition home or self-care (01) ==
LOC: ER 19:40
DX: N39.0 Urinary tract infection, site not specified (principal); F17.210 Nicotine dependence, cigarettes, uncomplicated
CPT/HCPCS: 87088; 85025; 87086; 80048; 36415; 81025; 80076; 83690; 76377; 74176; J7030; J2405; 81003; 81015; 96361; 96374; 96375; 99284